=== PATIENT | male | born 1985 | race Caucasian/White ===

== ENCOUNTER 2019-04-28 10:26 | Emergency (ER) | payer OTHER, SELFPAY ==
[2019-04-28 12:33] VITALS: BP 116/75; PULSE 102; RESP 20; TEMP 37.5; O2SAT 98
--- NOTE | 2019-04-28 12:51 | ED.GENADULT ---
HPI - General Adult General Chief complaint: Upper Respiratory Infection Stated complaint: fever/cough/sore throat/ears/ Time Seen by Provider: 04/28/19 12:51 Source: patient and RN notes reviewed Mode of arrival: ambulatory Limitations: no limitations History of Present Illness HPI narrative: 33-year-old (-) male presents with complaints of upper respiratory infection symptoms, body aches, bilateral eye redness, sore throat for the past 3 days. Nyquil and Dayquil last 04/27/2019 with little relief. High fevers, highest 104F, orally with intermittent chills. No drooling, neck or throat swelling. Pain is bilateral. Hurts to swallow. Exacerbation factors consist of eating and drinking. No rhinorrhea. Nasal congestion. No voice change. No nausea, vomiting, or abdominal pain. Tolerating liquids well. Denies chills, dyspnea, difficulty swallowing, jaw pain, dental pain, facial pain, foreign body sensation, and rash. Remains active. Complains of bilateral eye redness, irritation, itching, and drainage for 1 day. Stan says he had yellow drainage in LT eye upon awakening this am. Slightly matted and light sensitivity. No pain. No copious drainage. Exacerbating factors is opening eye. Relieving factors is closing eyes. Denies blurred vision, double vision, sensation of foreign body, or pain of eye with movement. Some parts of this dictation were generated by voice recognition software and may contain typographical and/or grammatical inaccuracies. Related Data Home Medications Medication Instructions Recorded Confirmed bupropion HCl [Wellbutrin XL] 150 mg PO QAM 04/28/19 04/28/19 dextroamphetamine-amphetamine 12.5 mg PO DAILY 04/28/19 04/28/19 [Mydayis] Allergies Allergy/AdvReac Type Severity Reaction Status Date / Time Penicillins AdvReac Dizziness Verified 04/28/19 12:31 Review of Systems Review of Systems: Narrative: CONSTITUTIONAL: Complains of fever, chills. Denies sweats. EYES: Denies visual changes. Complains of bilateral redness, LT eye discharge. ENT: Denies rhinorrhea. Complains of sore throat, congestion, bilateral otalgia. CARDIOVASCULAR: Denies chest pain, palpitations, edema. RESPIRATORY: Denies dyspnea, wheezing. Complains of cough. GASTROINTESTINAL: Denies abdominal pain, nausea, vomiting, diarrhea. GENITOURINARY: Denies dysuria, hematuria, abnormal discharge. SKIN: Denies rash or itching. MUSCULOSKELETAL: Denies acute back pain, joint pain. Complains of myalgia. NEUROLOGIC: Denies numbness or focal weakness. PSYCHIATRIC: Denies anxiety or depression. All systems reviewed & are unremarkable except as noted in HPI and below. [facility]LY [facility] Past Medical History Medical History (Updated 05/02/19 @ 23:39 by MARLENY Calderon) ADHD (attention deficit hyperactivity disorder) Asthma Exercise induced Depression Surgical History Surgical History (Updated 05/02/19 @ 23:30 by MARLENY Calderon) History of dental surgery Hx of appendectomy Family History Family History (Updated 05/02/19 @ 23:32 by MARLENY Calderon) Grandparent Diabetes mellitus Social History Social History (Updated 05/02/19 @ 23:32 by MARLENY Calderon) Smoking status: Never smoker Second hand tobacco smoke exposure: No Alcohol intake: never Substance use: never Living arrangements: with family Gender identity (if verbalized by the patient): Male Comments At time of signature, agree with nurse past medical, surgical, social, and family history. There is no relevant family history pertinent to the presenting complaint. Exam Narrative: Exam Narrative: GENERAL: This is a well-nourished, well-developed patient, in no apparent distress. Speaks in full sentences without deficits and ambulates with steady gait without dyspnea. HEAD: normocephalic, atraumatic. EYES: PERRL. Bilateral eye mild-moderate eye sclera nate, LT worse and clear. LT eye with clear watery drainage,
== END 2019-04-28 13:15 | disposition home or self-care (01) ==
PROVIDERS: Emergency Provider Nurse Practitioner Family; PCP Family Medicine
DX: J02.0 Streptococcal pharyngitis (principal)
CPT/HCPCS: 87804; 87880; 99203; G0463